=== PATIENT | female | born 1975 | race Caucasian/White ===

== ENCOUNTER 2022-06-11 09:15 | Inpatient (IN) | payer OTHER ==
[2022-06-11] MEDS ORDERED: SODIUM CHLORIDE 500 ML IV STA (09:45)
[2022-06-11 10:34] LABS: HEMATOCRIT 27.8 % (32.4-45.2); MCH 28.4 pg (25.7-33.7); MCHC 35.9 g/dl (32.0-36.0); MEAN CELL VOLUME 79.2 fl (80-96); MEAN PLT VOLUME 7.9 fl (7.5-11.1); PLATELET COUNT 391 10^3/uL (134-434); RBC 3.52 M/mm3 (3.60-5.2); RDW 15.6 % (11.6-15.6); WHITE BLOOD COUNT 23.7 K/mm3 (4.0-10.0)
[2022-06-11 11:27] LABS: ANISOCYTOSIS 0; HELMET CELLS 0; HOWELL-JOLLY BODIES 0; MACROCYTOSIS 0; OVALOCYTE 0; ROULEAU 0; SICKELED CELLS 0; TARGET CELLS 0; TEAR DROP CELLS 0; TOXIC GRANULATION 0
[2022-06-11 11:56] LABS: EPI CELLS >36 /uL (0-25.1); HYALINE CASTS 31 /uL (0-3.1); PH,URINE 5.5 (5.0-8.0); URINE APPEARANCE CLOUDY; URINE BACTERIA >9,000 /uL (0-1359); URINE BILIRUBIN NEGATIVE (NEGATIVE); URINE COLOR DK YELLOW; URINE GLUCOSE (UA) NEGATIVE (NEGATIVE); URINE KETONE 3+ (NEGATIVE); URINE LEUK ESTERASE 2+ (NEGATIVE); URINE NITRITE NEGATIVE (NEGATIVE); URINE PROTEIN 2+ (NEGATIVE); URINE RBC 13 /uL (0-23.9); URINE WBC 625 /uL (0-25.8)
[2022-06-11] MEDS ORDERED: ceFAZolin 2 GRAM PREMIX BAG IVPB SCH (12:30)
[2022-06-11] MEDS: CEFAZOLIN SODIUM 2 GM in DEXTROSE 5%-WATER 100 ML IVPB SCH ×2 (13:25→17:00)
[2022-06-11] MEDS ORDERED: ACETAMINOPHEN 325 MG TABLET (FP) ONE ×2 (14:18→19:42)
[2022-06-11] MEDS ORDERED: ACETAMINOPHEN 325 MG TABLET (FP) PO ONE (14:30)
[2022-06-11 16:35] VITALS: RESP 18
[2022-06-11] MEDS: ACETAMINOPHEN 325 MG TABLET (FP) PO PRN (19:47)
[2022-06-11] MEDS ORDERED: DOCUSATE SODIUM 100 MG CAPSULE (FP) PO PRN (20:13)
[2022-06-11] MEDS: FERROUS SO4 325 MG TABLET (FP) PO SCH (22:30)
[2022-06-12] MEDS: CEFAZOLIN SODIUM 2 GM in DEXTROSE 5%-WATER 100 ML IVPB SCH ×3 (01:56→18:50)
[2022-06-12] MEDS: ACETAMINOPHEN 325 MG TABLET (FP) PO PRN ×4 (01:57→22:32)
[2022-06-12 08:13] LABS: BASO % 0.1 % (0-2.0); EOS % 0.2 % (0-4.5); HEMATOCRIT 24.6 % (32.4-45.2); HEMOGLOBIN 8.9 GM/dL (10.7-15.3); MCH 28.6 pg (25.7-33.7); MEAN CELL VOLUME 79.3 fl (80-96); MEAN PLT VOLUME 7.8 fl (7.5-11.1); MONO % 6.7 % (3.8-10.2); PLATELET COUNT 318 10^3/uL (134-434); RDW 15.6 % (11.6-15.6); WHITE BLOOD COUNT 16.6 K/mm3 (4.0-10.0)
[2022-06-12 09:01] LABS: BLOOD UREA NITROGEN 12.2 mg/dL (7-18); CALCIUM 8.7 mg/dL (8.5-10.1)
[2022-06-12 09:04] LABS: CREATININE 0.7 mg/dL (0.55-1.3)
[2022-06-12] MEDS: FERROUS SO4 325 MG TABLET (FP) PO SCH ×2 (09:34→22:32)
[2022-06-12] MEDS ORDERED: IRON SUCROSE INJECTION 200 MG in SODIUM CHLORIDE 90 ML IVPB ONE (18:30)
[2022-06-13] MEDS: CEFAZOLIN SODIUM 2 GM in DEXTROSE 5%-WATER 100 ML IVPB SCH ×2 (01:15→09:09)
[2022-06-13 06:34] VITALS: TEMP 98.2
[2022-06-13] MEDS: FERROUS SO4 325 MG TABLET (FP) PO SCH (09:13)
[2022-06-13] MEDS ORDERED: CEPHALEXIN MONOHYDRATE 500 MG CAPSULE (UD) PO SCH (10:00)
[2022-06-13] MEDS: ACETAMINOPHEN 325 MG TABLET (FP) PO PRN (10:22)
[2022-06-13 11:40] VITALS: BP 107/67; PULSE 107
[2022-06-13 13:10] LABS: HEMATOCRIT 26.6 % (32.4-45.2); HEMOGLOBIN 9.2 GM/dL (10.7-15.3); MCH 27.6 pg (25.7-33.7); MCHC 34.7 g/dl (32.0-36.0); MEAN CELL VOLUME 79.7 fl (80-96); MEAN PLT VOLUME 7.4 fl (7.5-11.1); PLATELET COUNT 381 10^3/uL (134-434); RBC 3.33 M/mm3 (3.60-5.2); RDW 16.1 % (11.6-15.6); WHITE BLOOD COUNT 10.8 K/mm3 (4.0-10.0)
[2022-06-13 14:41] VITALS: BMI 28.3
[2022-06-13 15:06] LABS: ANISOCYTOSIS 2+; MACROCYTOSIS 0
== END 2022-06-13 13:15 | disposition home or self-care (01) | DRG 566 ==
LOC: JDEL 09:15 → JLDR 12:00 → J3W 16:18
PROVIDERS: ADMIT Obstetrics & Gynecology Maternal & Fetal Medicine; ATTEND Obstetrics & Gynecology Maternal & Fetal Medicine
DX: O23.03 Infections of kidney in pregnancy, third trimester (principal); Z3A.30 30 weeks gestation of pregnancy
CPT/HCPCS: 36415; 80048; 80053; 81003; 85025; 87086; 87186; C9803-CS; J1756; U0003; U0005

== ENCOUNTER 2022-08-16 19:00 | Inpatient (IN) | payer OTHER ==
[2022-08-16] MEDS: DEXTROSE 5%-LACTATED RINGERS 1,000 ML IV SCH (20:30)
[2022-08-16 20:53] VITALS: BMI 28.0
[2022-08-16 21:10] LABS: BASO % 0.5 % (0-2.0); EOS % 0.7 % (0-4.5); HEMATOCRIT 32.8 % (32.4-45.2); HEMOGLOBIN 11.5 GM/dL (10.7-15.3); LYMPH % 13.5 % (8-40); MCH 27.2 pg (25.7-33.7); MEAN CELL VOLUME 77.7 fl (80-96); MEAN PLT VOLUME 7.9 fl (7.5-11.1); MONO % 6.3 % (3.8-10.2); PLATELET COUNT 421 10^3/uL (134-434); RBC 4.22 M/mm3 (3.60-5.2); RDW 17.5 % (11.6-15.6); WHITE BLOOD COUNT 11.3 K/mm3 (4.0-10.0)
[2022-08-16 21:19] LABS: INR 0.93 (0.83-1.09); PROTHROMBIN TIME (PATIENT) 10.8 SEC (9.7-13.0)
[2022-08-16 21:22] LABS: ACTIVATED PTT 27.5 SECONDS (25.2-36.5)
[2022-08-16 21:31] LABS: POTASSIUM 4.4 mmol/L (3.5-5.1)
[2022-08-16 21:32] LABS: CALCIUM 9.3 mg/dL (8.5-10.1)
[2022-08-16 21:33] LABS: BLOOD UREA NITROGEN 16.7 mg/dL (7-18)
[2022-08-16 21:36] LABS: CREATININE 1.1 mg/dL (0.55-1.3)
[2022-08-16] MEDS: MISOPROSTOL 100 MCG TABLET PV SCH (22:28)
[2022-08-17] MEDS: MISOPROSTOL 100 MCG TABLET PV SCH (02:45)
[2022-08-17] MEDS ORDERED: morphine CARPU-JECT 8 MG/1 ML DISP.SYRIN IVPB ONE (02:52)
[2022-08-17] MEDS ORDERED: morphine SULFATE 4 MG/ML VIAL ONE ×2 (02:59→07:50)
[2022-08-17] MEDS: DEXTROSE 5%-LACTATED RINGERS 1,000 ML IV SCH ×2 (03:20→10:00)
[2022-08-17] MEDS ORDERED: PROMETHAZINE HCL 25 MG/1 ML VIAL IVPB ONE (07:29)
[2022-08-17] MEDS ORDERED: PROMETHAZINE HCL 25 MG/1 ML VIAL ONE (07:48)
[2022-08-17] MEDS ORDERED: SODIUM CHLORIDE 1,000 ML IV ONE ×2 (08:50→10:45)
[2022-08-17] MEDS ORDERED: SODIUM CHLORIDE 500 ML IV ONE (10:49)
[2022-08-17] MEDS ORDERED: OXYTOCIN 20 UNITS in 0.9% NS 20 UNIT/1,000 ML INFUS.BAG IV ONE (12:31)
[2022-08-17] MEDS ORDERED: LIDOCAINE HCL 1% PRESERVATIVE FREE - 30ML VIAL ONE (14:06)
[2022-08-17] MEDS ORDERED: OXYTOCIN 20 UNITS in 0.9% NS 20 UNIT/1,000 ML INFUS.BAG IV SCH (15:00)
[2022-08-17 15:15] LABS: CORD BASE EXCESS -11.9 mmol/L (0-2); CORD HCO3 15.1 mmHg (20-29); CORD PCO2 37.9 mmHg (30-78); CORD pH 7.217 (7.14-7.44)
[2022-08-17 15:17] LABS: CORD PCO2 45.9 mmHg (30-78); CORD pH 7.186 (7.14-7.44)
[2022-08-17] MEDS: FERROUS SO4 325 MG TABLET (FP) PO SCH (17:32)
[2022-08-17] MEDS: IBUPROFEN 600 MG TABLET (FP) PO PRN (21:32)
[2022-08-17] MEDS: ACETAMINOPHEN 325 MG TABLET (FP) PO PRN (23:06)
[2022-08-18] MEDS: IBUPROFEN 600 MG TABLET (FP) PO PRN ×2 (06:03→19:59)
[2022-08-18 07:55] LABS: HEMATOCRIT 21.2 % (32.4-45.2); HEMOGLOBIN 7.3 GM/dL (10.7-15.3); MCHC 34.2 g/dl (32.0-36.0); MEAN CELL VOLUME 79.1 fl (80-96); MEAN PLT VOLUME 7.9 fl (7.5-11.1); PLATELET COUNT 279 10^3/uL (134-434); RBC 2.69 M/mm3 (3.60-5.2); RDW 16.8 % (11.6-15.6); WHITE BLOOD COUNT 19.3 K/mm3 (4.0-10.0)
[2022-08-18 09:44] LABS: ANISOCYTOSIS 0; MACROCYTOSIS 0
[2022-08-18] MEDS: PRENATAL VITAMINS W/ FOLIC ACID TABLET (FP) PO SCH (09:58)
[2022-08-18] MEDS: FERROUS SO4 325 MG TABLET (FP) PO SCH ×3 (09:58→17:59)
[2022-08-18] MEDS ORDERED: DIPHTH,PERTUSS(ACELL),TET 0.5 ML DISP.SYRIN IM ONE (10:00)
[2022-08-18 10:40] VITALS: RESP 18
[2022-08-18] MEDS: ACETAMINOPHEN 325 MG TABLET (FP) PO PRN ×3 (15:10→22:43)
[2022-08-18] MEDS: WITCH HAZEL 50% (TUCKS) 40 PAD/JAR PAD TP PRN ×2 (15:22→22:43)
[2022-08-18] MEDS: BENZOCAINE 28 GM HEMORRHOIDAL OINTMENT TP PRN ×2 (15:22→22:43)
[2022-08-18] MEDS: DOCUSATE SODIUM 100 MG CAPSULE (FP) PO PRN (20:00)
[2022-08-19] MEDS: IBUPROFEN 600 MG TABLET (FP) PO PRN ×2 (02:16→09:13)
[2022-08-19] MEDS: ACETAMINOPHEN 325 MG TABLET (FP) PO PRN (05:34)
[2022-08-19] MEDS: FERROUS SO4 325 MG TABLET (FP) PO SCH ×2 (09:13→12:35)
[2022-08-19] MEDS: DOCUSATE SODIUM 100 MG CAPSULE (FP) PO PRN (09:13)
[2022-08-19] MEDS: PRENATAL VITAMINS W/ FOLIC ACID TABLET (FP) PO SCH (09:13)
[2022-08-19 09:31] VITALS: BP 112/68; PULSE 91; TEMP 98
== END 2022-08-19 15:00 | disposition home or self-care (01) | DRG 560 ==
LOC: JLDR 19:00 → J3W 08-17 16:01
PROVIDERS: ADMIT Obstetrics & Gynecology Maternal & Fetal Medicine; ATTEND Obstetrics & Gynecology Maternal & Fetal Medicine
PROC: 10D07Z6 Extraction of Products of Conception, Vacuum, Via Natural or Artificial Opening (ICD-10-PCS; principal; 2022-08-17)
PROC: 0HQ9XZZ Repair Perineum Skin, External Approach (ICD-10-PCS; 2022-08-17)
PROC: 0W8NXZZ Division of Female Perineum, External Approach (ICD-10-PCS; 2022-08-17)
DX: O70.0 First degree perineal laceration during delivery (principal); O24.420 Gestational diabetes mellitus in childbirth, diet controlled; O36.8330 Maternal care for abnormalities of the fetal heart rate or rhythm, third trimester, not applicable or unspecified; O99.02 Anemia complicating childbirth; O22.43 Hemorrhoids in pregnancy, third trimester; Z3A.39 39 weeks gestation of pregnancy; Z37.0 Single live birth
CPT/HCPCS: 36415; 36600; 80048; 82803; 82962; 85025; 85610; 85730; 86780; 86850; 86900; 86901; 88307-TC; 90715

== ENCOUNTER 2024-08-23 19:45 | Inpatient (IN) | payer OTHER ==
[2024-08-23] MEDS: DEXTROSE 5%-LACTATED RINGERS 1,000 ML IV SCH (20:50)
[2024-08-23 21:16] LABS: ABSOLUTE IMMATURE GRANULOCYTES 0.12 x10^3/uL (0.0-0.031); BASOPHILS # 0.04 x10^3/uL (0.01-0.08); EOSINOPHIL % 0.9 % (0.7-5.8); EOSINOPHILS # 0.11 x10^3/uL (0.04-0.36); HEMATOCRIT 31.4 % (34.1-44.9); HEMOGLOBIN 11.1 g/dL (11.2-15.7); MCHC 35.4 g/dl (32.2-35.5); MEAN CELL VOLUME 80.1 fl (79.4-94.8); MEAN PLT VOLUME 10.4 fl (9.4-12.3); MONOCYTE # 0.69 x10^3/uL (0.24-0.86); MONOCYTE % 5.6 % (4.7-12.5); PLATELET COUNT 281 x10^3/uL (182-369); RDW 14.9 % (12.2-17.1)
[2024-08-23 21:23] VITALS: BMI 27.4
[2024-08-23 21:25] LABS: INR 0.89 (0.83-1.09); PROTHROMBIN TIME (PATIENT) 9.8 SEC (9.7-13.0)
[2024-08-23 21:28] LABS: ACTIVATED PTT 24.9 SECONDS (25.2-36.5)
[2024-08-23 21:39] LABS: POTASSIUM 4.1 mmol/L (3.5-5.1)
[2024-08-23 21:41] LABS: CALCIUM 9.5 mg/dL (8.5-10.1)
[2024-08-23 21:43] LABS: ALBUMIN 2.5 g/dl (3.4-5.0); BLOOD UREA NITROGEN 11.6 mg/dL (7-18)
[2024-08-23 21:47] LABS: BILIRUBIN,TOTAL 0.5 mg/dL (0.2-1)
[2024-08-23] MEDS: MISOPROSTOL 25 MCG TABLET (COMPOUNDED BY PHARMACY) PV SCH (23:00)
[2024-08-24] MEDS: OXYTOCIN 30 UNITS in 0.9% NS 30 UNIT/500 ML INFUS.BAG IVPB SCH (09:35)
[2024-08-24] MEDS ORDERED: OXYTOCIN 30 UNITS in 0.9% NS 30 UNIT/500 ML INFUS.BAG IVPB ONE (09:37)
[2024-08-24] MEDS ORDERED: morphine SULFATE 4 MG/ML VIAL ONE (11:24)
[2024-08-24] MEDS: morphine SULFATE 4 MG/ML VIAL IVPB PRN (11:30)
[2024-08-24] MEDS: morphine SULFATE 4 MG/ML VIAL IVPB ONE (11:37)
[2024-08-24] MEDS ORDERED: OXYTOCIN 10 UNITS/ML VIAL ONE (12:53)
[2024-08-24] MEDS: OXYTOCIN 20 UNITS in 0.9% NS 20 UNIT/1,000 ML INFUS.BAG IV SCH (13:00)
[2024-08-24] MEDS ORDERED: OXYTOCIN 20 UNITS in 0.9% NS 20 UNIT/1,000 ML INFUS.BAG IV ONE ×2 (13:38→14:47)
[2024-08-24] MEDS ORDERED: BENZOCAINE 28 GM HEMORRHOIDAL OINTMENT TP PRN (13:43)
[2024-08-24 13:55] LABS: CORD BASE EXCESS -7.7 mmol/L (0-2); CORD HCO3 18.2 mmHg (20-29); CORD PCO2 38.6 mmHg (30-78); CORD pH 7.291 (7.14-7.44)
[2024-08-24] MEDS: DOCUSATE SODIUM 100 MG CAPSULE (FP) PO SCH (17:08)
[2024-08-24] MEDS: WITCH HAZEL 50% (TUCKS) 40 PAD/JAR PAD TP PRN (17:15)
[2024-08-24] MEDS: IBUPROFEN 600 MG TABLET (FP) PO PRN (17:15)
[2024-08-24] MEDS: ACETAMINOPHEN 325 MG TABLET (FP) PO PRN (23:05)
[2024-08-25 07:34] LABS: ABSOLUTE IMMATURE GRANULOCYTES 0.19 x10^3/uL (0.0-0.031); BASOPHILS # 0.02 x10^3/uL (0.01-0.08); EOSINOPHIL % 0.2 % (0.7-5.8); EOSINOPHILS # 0.03 x10^3/uL (0.04-0.36); HEMATOCRIT 24.3 % (34.1-44.9); HEMOGLOBIN 8.5 g/dL (11.2-15.7); MEAN CELL VOLUME 80.7 fl (79.4-94.8); MEAN PLT VOLUME 11.1 fl (9.4-12.3); MONOCYTE # 0.56 x10^3/uL (0.24-0.86); PLATELET COUNT 215 x10^3/uL (182-369); RDW 14.8 % (12.2-17.1)
[2024-08-25 11:57] VITALS: RESP 18
[2024-08-25] MEDS: FERROUS SO4 325 MG TABLET (FP) PO SCH (21:28)
[2024-08-26 08:04] VITALS: BP 109/72; PULSE 84; TEMP 98.2
== END 2024-08-26 12:35 | disposition home or self-care (01) | DRG 560 ==
LOC: JLDR 19:45 → J3W 08-24 16:58
PROVIDERS: ADMIT Obstetrics & Gynecology Maternal & Fetal Medicine; ATTEND Obstetrics & Gynecology Maternal & Fetal Medicine
PROC: 10E0XZZ Delivery of Products of Conception, External Approach (ICD-10-PCS; principal; 2024-08-24)
PROC: 0HQ9XZZ Repair Perineum Skin, External Approach (ICD-10-PCS; 2024-08-24)
DX: O24.420 Gestational diabetes mellitus in childbirth, diet controlled (principal); O69.81X0 Labor and delivery complicated by cord around neck, without compression, not applicable or unspecified; O70.0 First degree perineal laceration during delivery; O66.0 Obstructed labor due to shoulder dystocia; Z3A.39 39 weeks gestation of pregnancy; Z37.0 Single live birth
CPT/HCPCS: 36415; 36600; 59409; 80053; 82803; 82962; 85025; 85610; 85730; 86780; 86850; 86900; 86901; 88307-TC